=== PATIENT | female | born 1985 | race Two or more races ===

== ENCOUNTER 2022-11-28 18:30 | Emergency (ER) | payer OTHER ==
[~2022-11-28] VITALS: Ht 160 cm; Wt 73.0 kg
[2022-11-28 18:43] VITALS: O2SAT 97
[2022-11-28] MEDS ORDERED: ONDANSETRON HCL 4MG/2ML INJ IV STA (19:24)
[2022-11-28] MEDS ORDERED: VISCOUS LIDOCAINE 2% 15 ML UDC PO STA (19:24)
[2022-11-28] MEDS ORDERED: MAGNESIUM/ALUMINUM HYDROXIDE/SIMETHICONE 30ML UDC PO STA (19:24)
[2022-11-28] MEDS ORDERED: SODIUM CHLORIDE 0.9% 1,000 ML IV ONE (19:30)
[2022-11-28] MEDS ORDERED: PANTOPRAZOLE 40MG DR TABLET PO ONE (19:30)
[2022-11-28 20:07] LABS: BASOPHILS % 0.1 % (0.0-2.0); EOSINOPHILS % 0.3 % (0.0-5.0); HEMATOCRIT. 36.9 % (36.0-48.0); HEMOGLOBIN. 12.5 g/dL (12.0-16.0); LYMPHOCYTES % 7.3 % (20.0-50.0); MEAN CORPUSCULAR HEMOGLOBIN 29.9 pg (28.0-32.0); MEAN CORPUSCULAR VOLUME 88.5 fL (81.0-99.0); MEAN PLATELET VOLUME 8.3 fl (7.4-10.4); MONOCYTES % 3.9 % (2.0-8.0); NEUTROPHILS % 88.4 % (40.0-76.0); PLATELET 266 x1000/uL (130-400); RED BLOOD CELL COUNT 4.17 mill/uL (4.2-5.4); RED CELL DISTRIBUTION WIDTH 13.5 % (11.6-14.6)
[2022-11-28 20:12] LABS: CHLORIDE 110 mEq/L (98-107)
[2022-11-28] MEDS ORDERED: POTASSIUM CHLORIDE 20MEQ/PACKET PO ONE (20:45)
[2022-11-28] MEDS ORDERED: PANT40SU MT (21:55)
[2022-11-28] MEDS ORDERED: ONDA4TAB50 MT (21:55)
[2022-11-28] MEDS ORDERED: TOPUD MT (21:55)
[2022-11-28] MEDS ORDERED: POTA-205 MT (21:56)
[2022-11-28 22:37] VITALS: BP 112/61; PULSE 70; RESP 18; TEMP 98.2
== END 2022-11-28 22:39 | disposition home or self-care (01) ==
LOC: ER 18:30
DX: R11.2 Nausea with vomiting, unspecified (principal); R10.9 Unspecified abdominal pain; F41.9 Anxiety disorder, unspecified
CPT/HCPCS: 99284; 96374; 80053; 85025; 36415; J2405; J7030